=== PATIENT | female | born 1945 | race Caucasian/White ===

== ENCOUNTER → 2017-09-06 | Outpatient (CLI) | payer MEDICARE, OTHER ==
[~2017-09-06] MED LIST: CITA20TA5 PO; DEXL60CA2 PO; LEVO75TA PO; METANX PO; OMEG1CAP20 PO; ROSU5TAB PO; VIT1TABL7 PO; WARF5TAB7 PO
[2017-09-06 14:22] LABS: HEMATOCRIT 38.5 % (34.6-47.8); WHITE BLOOD COUNT 5.8 x10^3/uL (3.4-10)
== END | disposition home or self-care (01) ==
LOC: STAR 13:08
PROVIDERS: ATTEND Internal Medicine
DX: Z01.818 Encounter for other preprocedural examination (principal); R93.8 Abnormal findings on diagnostic imaging of other specified body structures; C64.9 Malignant neoplasm of unspecified kidney, except renal pelvis; R63.4 Abnormal weight loss; I82.5Z9 Chronic embolism and thrombosis of unspecified deep veins of unspecified distal lower extremity; F41.9 Anxiety disorder, unspecified
CPT/HCPCS: 36415; 85025; 85610; 85730; 93005

== ENCOUNTER 2017-09-12 06:41 | Day surgery (SDC) | payer MEDICARE, OTHER ==
[~2017-09-12] VITALS: Ht 167.6 cm; Wt 58.8 kg
[2017-09-12] MEDS ORDERED: LACTATED RINGERS 1,000 ML IV SCH (07:25)
[2017-09-12 07:27] VITALS: BP 116/78
[2017-09-12] MEDS ORDERED: LIDOCAINE 1%, 2ML SQ PRN (07:30)
[2017-09-12] MEDS ORDERED: MIDAZOLAM 1 MG/ML, 2ML ONE (08:40)
[2017-09-12] MEDS ORDERED: PROPOFOL 10 MG/ML, 20ML ONE (08:50)
[2017-09-12] MEDS ORDERED: PROMETHAZINE 25 MG/ML, 1ML IV PRN (09:00)
[2017-09-12] MEDS ORDERED: hydrALAzine 20 MG/ML, 1ML IV PRN (09:00)
[2017-09-12] MEDS ORDERED: ONDANSETRON 2MG/ML, 2ML IVPush PRN (09:00)
[2017-09-12] MEDS ORDERED: LABETALOL 5MG/ML, 20ML IV PRN (09:00)
[2017-09-12] MEDS ORDERED: HYDROcodone/APAP 7.5-325MG/15ML UDC PO PRN (09:00)
[2017-09-12] MEDS ORDERED: FENTANYL PF 100 MCG/2ML IV PRN (09:00)
[2017-09-12] MEDS ORDERED: OXYcodone 5 MG/5 ML ORAL.SOL UDC PO PRN (09:00)
[2017-09-12] MEDS ORDERED: ONDANSETRON 2MG/ML, 2ML ONE (09:07)
== END 2017-09-12 11:30 ==
LOC: OUT 06:41
PROVIDERS: ATTEND Internal Medicine
DX: C25.1 Malignant neoplasm of body of pancreas (principal)
CPT/HCPCS: 43242; 88173; 88307; J2250; J2405; J2704; J7120